=== PATIENT | male | born 1970 | race Caucasian/White ===

== ENCOUNTER 2017-04-05 12:52 | Inpatient (IN) ==
[2017-04-05] MEDS ORDERED: DILTIAZEM 50 MG/10 ML VIAL IV STA (13:24)
[2017-04-05] MEDS ORDERED: ASPIRIN 325 MG TABLET PO STA (13:24)
[2017-04-05 13:48] LABS: Basophils # 0.1 10*3/uL (0.0-0.2); Basophils % 0.7 % (0.0-0.8); Eosinophils # 0.1 10*3/uL (0.0-0.87); Eosinophils % 1.8 % (0.00-10.9); Hematocrit 45.4 VOL% (42.0-52.0); Immature Granulocytes % 0.3 %; Immature Granulocytes Absolute 0.02 #; Lymphocytes # 1.3 10*3/uL (1.4-4.0); Lymphocytes % 19.8 % (21.2-54.2); Mean Corpuscular HGB Conc 35.2 GM/DL (32-36); Mean Corpuscular Hemoglobin 32 PG (27-34); Mean Corpuscular Volume 90.8 FL (87-102); Mean Platelet Volume 10.2 FL (9.6-12.0); Monocytes # 0.5 10*3/uL (0.11-0.8); Monocytes % 7.9 % (1.7-12.7); Neutrophils # 4.6 10*3/uL (1.4-7.4); Neutrophils % 69.5 % (38.7-73.9); Platelet Count 240 T/CUMM (130-400); Red Cell Distribution Width 14.6 % (9.3-17.3); White Blood Count 6.7 T/CUMM (4-12)
[2017-04-05 13:55] LABS: Apearance,Urine CLEAR (Clear); Bilirubin,Urine Negative (Negative); Blood, Urine Negative (Negative); Glucose,Urine (UA) 150 mg/dL (Negative); Ketones,Urine 5 mg/dL (Negative); Nitrite,Urine Negative (Negative); Protein,Urine Negative; Squamous Epithelial Cell,Urine Occasional /HPF (0-10); Urine Color Straw (Yellow); Urine Specific Gravity 1.005 (1.001-1.035); Urine Urobilinogen < 2.0 EU/DL (0.2-1.0); WBC,Urine <1 /HPF (0-6)
[2017-04-05] MEDS: DILTIAZEM INJ 100 MG in SODIUM CHLORIDE 0.9% 100 ML IV SCH ×2 (13:56→22:02)
[2017-04-05 14:07] LABS: PT Patient Result 10.6 SECS
[2017-04-05 14:16] LABS: Free T4 (Free Thyroxine) 1.03 NG/DL (0.76-1.46); Magnesium 1.9 MG/DL (1.8-2.4)
[2017-04-05 14:23] LABS: Albumin 4.1 G/DL (3.4-5.0); Bilirubin,Total 0.7 MG/DL (0.2-1.0); Calcium 9.4 MG/DL (8.5-10.1); Osmolality,Calculated 276.7 MOS/KG (273-304); Potassium 3.8 MMOL/L (3.5-5.1); Thyroid Stimulating Hormone 0.661 uIU/ml (0.358-3.74); Total Protein 7.4 G/DL (6.4-8.3); Troponin I Only 0.034 NG/ML (0.00-0.045)
[2017-04-05] MEDS ORDERED: ENOXAPARIN 100 MG/ML SYRINGE SUBCUT STA (14:30)
[2017-04-05 14:39] LABS: Barbiturates Screen,Urine Negative (Negative); Benzodiazepines Screen,Urine Negative (Negative); Cannabinoid Screen,Urine Negative (Negative); Opiate Screen,Urine Negative (Negative); Phencyclidine Screen,Urine Negative (Negative)
[2017-04-05] MEDS ORDERED: ENOXAPARIN 120 MG/0.8 ML SYRINGE SUBCUT ONE (15:33)
[2017-04-05] MEDS ORDERED: DILTIAZEM 50 MG/10 ML VIAL IV ONE (15:42)
[2017-04-05] MEDS ORDERED: DILTIAZEM 100 MG VIAL.ADD IV ONE (15:42)
[2017-04-05] MEDS ORDERED: ONDANSETRON 4 MG/2 ML VIAL IV PRN (16:11)
[2017-04-05] MEDS ORDERED: SECUKINUMAB 150 MG SUBCUT SCH (16:11)
[2017-04-05] MEDS ORDERED: ZALEPLON 5 MG CAPSULE PO PRN (16:11)
[2017-04-05] MEDS ORDERED: DIGOXIN 0.5 MG/2 ML AMP IV ONE ×2 (16:54→18:30)
[2017-04-05] MEDS ORDERED: DEXTROSE 50% 25 GM/50 ML VIAL IV PRN (18:00)
[2017-04-05] MEDS ORDERED: GLUCAGON 1 MG VIAL IM PRN (18:00)
[2017-04-05] MEDS: ENOXAPARIN 150 MG/ML SYRINGE SUBCUT SCH (21:16)
[2017-04-05] MEDS: OMEGA 3 ACID ETHYL ESTERS 1 GM CAPSULE PO SCH (21:17)
[2017-04-05] MEDS: ATORVASTATIN 20 MG TABLET PO SCH (21:17)
[2017-04-05] MEDS: TRIAMCINOLONE 0.1% OINT 15 GM TUBE TOP SCH (21:17)
[2017-04-05] MEDS: INSULIN LISPRO 100 UNIT/ML SUBCUT SCH (21:19)
[2017-04-05 22:02] LABS: Troponin I Only 0.049 NG/ML (0.00-0.045)
[2017-04-06 03:39] LABS: Basophils # 0.1 10*3/uL (0.0-0.2); Basophils % 0.8 % (0.0-0.8); Eosinophils # 0.2 10*3/uL (0.0-0.87); Eosinophils % 2.5 % (0.00-10.9); Hematocrit 42.3 VOL% (42.0-52.0); Immature Granulocytes % 0.3 %; Immature Granulocytes Absolute 0.02 #; Lymphocytes # 2.1 10*3/uL (1.4-4.0); Mean Corpuscular HGB Conc 35.5 GM/DL (32-36); Mean Corpuscular Hemoglobin 33 PG (27-34); Mean Platelet Volume 10.9 FL (9.6-12.0); Monocytes # 0.4 10*3/uL (0.11-0.8); Monocytes % 6.2 % (1.7-12.7); Neutrophils # 3.4 10*3/uL (1.4-7.4); Neutrophils % 56.2 % (38.7-73.9); Platelet Count 237 T/CUMM (130-400); Red Blood Count 4.55 MC/CUMM (3.8-5.5); Red Cell Distribution Width 14.7 % (9.3-17.3); White Blood Count 6.1 T/CUMM (4-12)
[2017-04-06 04:01] LABS: Calcium 8.3 MG/DL (8.5-10.1); Magnesium 1.8 MG/DL (1.8-2.4); Osmolality,Calculated 281.5 MOS/KG (273-304); Potassium 3.7 MMOL/L (3.5-5.1)
[2017-04-06] MEDS: DILTIAZEM INJ 100 MG in SODIUM CHLORIDE 0.9% 100 ML IV SCH (04:43)
[2017-04-06] MEDS: INSULIN LISPRO 100 UNIT/ML SUBCUT SCH ×4 (08:50→20:28)
[2017-04-06] MEDS: SPIRONOLACTONE 100 MG TABLET PO SCH (08:51)
[2017-04-06] MEDS: ENOXAPARIN 150 MG/ML SYRINGE SUBCUT SCH (08:52)
[2017-04-06] MEDS: FOLIC ACID 1 MG TABLET PO SCH (08:52)
[2017-04-06] MEDS: FUROSEMIDE 40 MG TABLET PO SCH (08:52)
[2017-04-06] MEDS: PANTOPRAZOLE 40 MG TABLET PO SCH (08:52)
[2017-04-06] MEDS ORDERED: ENOXAPARIN 40 MG/0.4 ML SYRINGE SUBCUT SCH (09:00)
[2017-04-06] MEDS: TRIAMCINOLONE 0.1% OINT 15 GM TUBE TOP SCH ×2 (09:14→20:28)
[2017-04-06] MEDS: DILTIAZEM 30 MG TABLET PO SCH ×3 (12:10→20:27)
[2017-04-06] MEDS ORDERED: DILTIAZEM 30 MG TABLET PO SCH (13:00)
[2017-04-06] MEDS: APIXABAN 5 MG TABLET PO SCH (20:27)
[2017-04-06] MEDS: OMEGA 3 ACID ETHYL ESTERS 1 GM CAPSULE PO SCH (20:28)
[2017-04-06] MEDS: ATORVASTATIN 20 MG TABLET PO SCH (20:28)
[2017-04-07 03:56] LABS: Basophils % 0.7 % (0.0-0.8); Eosinophils # 0.1 10*3/uL (0.0-0.87); Eosinophils % 2.1 % (0.00-10.9); Immature Granulocytes % 0.3 %; Immature Granulocytes Absolute 0.02 #; Lymphocytes # 1.5 10*3/uL (1.4-4.0); Lymphocytes % 26.5 % (21.2-54.2); Mean Corpuscular HGB Conc 35.7 GM/DL (32-36); Mean Corpuscular Hemoglobin 33 PG (27-34); Mean Corpuscular Volume 92.7 FL (87-102); Monocytes # 0.4 10*3/uL (0.11-0.8); Monocytes % 6.9 % (1.7-12.7); Neutrophils # 3.7 10*3/uL (1.4-7.4); Neutrophils % 63.5 % (38.7-73.9); Platelet Count 229 T/CUMM (130-400); Red Blood Count 4.53 MC/CUMM (3.8-5.5); Red Cell Distribution Width 14.5 % (9.3-17.3); White Blood Count 5.8 T/CUMM (4-12)
[2017-04-07 04:31] LABS: Calcium 8.2 MG/DL (8.5-10.1); Osmolality,Calculated 284.5 MOS/KG (273-304); Potassium 4.2 MMOL/L (3.5-5.1)
[2017-04-07 05:17] LABS: Risk Ratio 8.35; VLDL CHOLESTEROL 198.8 MG/DL
[2017-04-07] MEDS: APIXABAN 5 MG TABLET PO SCH (09:21)
[2017-04-07] MEDS: INSULIN LISPRO 100 UNIT/ML SUBCUT SCH ×4 (09:21→21:15)
[2017-04-07] MEDS: FUROSEMIDE 40 MG TABLET PO SCH (09:22)
[2017-04-07] MEDS: FOLIC ACID 1 MG TABLET PO SCH (09:22)
[2017-04-07] MEDS: TRIAMCINOLONE 0.1% OINT 15 GM TUBE TOP SCH ×2 (09:23→21:20)
[2017-04-07] MEDS: SPIRONOLACTONE 100 MG TABLET PO SCH (09:33)
[2017-04-07] MEDS: DILTIAZEM 30 MG TABLET PO SCH (09:34)
[2017-04-07] MEDS: BISOPROLOL 5 MG TABLET PO SCH (09:35)
[2017-04-07] MEDS: PANTOPRAZOLE 40 MG TABLET PO SCH (09:36)
[2017-04-07] MEDS: FENOFIBRATE 48 MG TABLET PO SCH (15:01)
[2017-04-07] MEDS: ROSUVASTATIN 20 MG TABLET PO SCH (21:13)
[2017-04-07] MEDS: OMEGA 3 ACID ETHYL ESTERS 1 GM CAPSULE PO SCH (21:14)
[2017-04-07] MEDS: LOSARTAN 25 MG TABLET PO SCH (21:14)
[2017-04-08 05:08] LABS: Basophils # 0.1 10*3/uL (0.0-0.2); Eosinophils # 0.2 10*3/uL (0.0-0.87); Eosinophils % 2.5 % (0.00-10.9); Hematocrit 41.4 VOL% (42.0-52.0); Hemoglobin 14.3 GM/DL (14.0-18.0); Immature Granulocytes % 0.2 %; Immature Granulocytes Absolute 0.01 #; Lymphocytes # 1.6 10*3/uL (1.4-4.0); Lymphocytes % 26.8 % (21.2-54.2); Mean Corpuscular HGB Conc 34.5 GM/DL (32-36); Mean Corpuscular Hemoglobin 32 PG (27-34); Mean Corpuscular Volume 92.8 FL (87-102); Mean Platelet Volume 10.9 FL (9.6-12.0); Monocytes # 0.4 10*3/uL (0.11-0.8); Monocytes % 7.3 % (1.7-12.7); Neutrophils # 3.7 10*3/uL (1.4-7.4); Neutrophils % 62.2 % (38.7-73.9); Platelet Count 210 T/CUMM (130-400); Red Blood Count 4.46 MC/CUMM (3.8-5.5); Red Cell Distribution Width 14.6 % (9.3-17.3)
[2017-04-08 05:44] LABS: Calcium 8.4 MG/DL (8.5-10.1); Magnesium 2.2 MG/DL (1.8-2.4); Osmolality,Calculated 288.3 MOS/KG (273-304); Potassium 4.2 MMOL/L (3.5-5.1)
[2017-04-08] MEDS ORDERED: DIAZEPAM 5 MG TABLET PO ONE (06:45)
[2017-04-08] MEDS ORDERED: diphenhydrAMINE CAP 50 MG CAPSULE PO ONE (06:45)
[2017-04-08] MEDS ORDERED: diphenhydrAMINE CAP 50 MG CAPSULE ONE (06:47)
[2017-04-08] MEDS ORDERED: DIAZEPAM 5 MG TABLET ONE (06:48)
[2017-04-08] MEDS ORDERED: LIDOCAINE 1% 20 ML VIAL ONE (06:49)
[2017-04-08] MEDS ORDERED: HEPARIN/NACL 0.9% 2 UNITS/ML 1,000 ML IV ONE (06:49)
[2017-04-08] MEDS: BISOPROLOL 5 MG TABLET PO SCH ×2 (06:55→09:59)
[2017-04-08] MEDS: PANTOPRAZOLE 40 MG TABLET PO SCH ×2 (06:55→09:58)
[2017-04-08] MEDS: LOSARTAN 25 MG TABLET PO SCH ×3 (06:55→20:18)
[2017-04-08] MEDS ORDERED: MIDAZOLAM 2 MG/2 ML VIAL ONE ×2 (07:24→07:33)
[2017-04-08] MEDS ORDERED: fentaNYL 100 MCG/2 ML VIAL ONE (07:24)
[2017-04-08] MEDS ORDERED: HEPARIN/NACL 0.9% 2 UNITS/ML 500 ML IV ONE (07:43)
[2017-04-08] MEDS: INSULIN LISPRO 100 UNIT/ML SUBCUT SCH ×4 (09:27→20:19)
[2017-04-08] MEDS: FOLIC ACID 1 MG TABLET PO SCH (09:57)
[2017-04-08] MEDS: FUROSEMIDE 40 MG TABLET PO SCH (09:57)
[2017-04-08] MEDS: SPIRONOLACTONE 100 MG TABLET PO SCH (09:57)
[2017-04-08] MEDS: FENOFIBRATE 48 MG TABLET PO SCH (09:57)
[2017-04-08] MEDS: TRIAMCINOLONE 0.1% OINT 15 GM TUBE TOP SCH ×2 (09:58→20:19)
[2017-04-08] MEDS: ROSUVASTATIN 20 MG TABLET PO SCH (20:18)
[2017-04-08] MEDS: OMEGA 3 ACID ETHYL ESTERS 1 GM CAPSULE PO SCH (20:18)
[2017-04-08] MEDS: ACETAMINOPHEN 325 MG TABLET PO PRN (20:19)
[2017-04-09] MEDS: ACETAMINOPHEN 325 MG TABLET PO PRN (05:46)
[2017-04-09 05:54] LABS: Basophils # 0.1 10*3/uL (0.0-0.2); Basophils % 0.8 % (0.0-0.8); Eosinophils # 0.1 10*3/uL (0.0-0.87); Eosinophils % 1.8 % (0.00-10.9); Hematocrit 42.2 VOL% (42.0-52.0); Hemoglobin 14.5 GM/DL (14.0-18.0); Immature Granulocytes % 0.2 %; Immature Granulocytes Absolute 0.01 #; Lymphocytes # 1.6 10*3/uL (1.4-4.0); Lymphocytes % 25.7 % (21.2-54.2); Mean Corpuscular HGB Conc 34.4 GM/DL (32-36); Mean Corpuscular Hemoglobin 32 PG (27-34); Mean Corpuscular Volume 92.3 FL (87-102); Mean Platelet Volume 10.8 FL (9.6-12.0); Monocytes # 0.5 10*3/uL (0.11-0.8); Monocytes % 7.6 % (1.7-12.7); Neutrophils # 3.9 10*3/uL (1.4-7.4); Neutrophils % 63.9 % (38.7-73.9); Platelet Count 191 T/CUMM (130-400); Red Blood Count 4.57 MC/CUMM (3.8-5.5); Red Cell Distribution Width 14.5 % (9.3-17.3); White Blood Count 6.1 T/CUMM (4-12)
[2017-04-09 06:24] LABS: Calcium 8.7 MG/DL (8.5-10.1); Magnesium 1.9 MG/DL (1.8-2.4); Osmolality,Calculated 286.3 MOS/KG (273-304); Potassium 4.1 MMOL/L (3.5-5.1)
[2017-04-09] MEDS: SPIRONOLACTONE 100 MG TABLET PO SCH (10:00)
[2017-04-09] MEDS: LOSARTAN 25 MG TABLET PO SCH (10:01)
[2017-04-09] MEDS: BISOPROLOL 5 MG TABLET PO SCH (10:02)
[2017-04-09] MEDS: FUROSEMIDE 40 MG TABLET PO SCH (10:02)
[2017-04-09] MEDS: FENOFIBRATE 48 MG TABLET PO SCH (10:02)
[2017-04-09] MEDS: PANTOPRAZOLE 40 MG TABLET PO SCH (10:02)
[2017-04-09] MEDS: FOLIC ACID 1 MG TABLET PO SCH (10:02)
[2017-04-09] MEDS: INSULIN LISPRO 100 UNIT/ML SUBCUT SCH ×3 (10:06→17:33)
[2017-04-09] MEDS ORDERED: SPIRONOLACTONE 50 MG TABLET PO SCH (11:10)
[2017-04-09] MEDS ORDERED: FUROSEMIDE 20 MG TABLET PO SCH (11:11)
[2017-04-09] MEDS: TRIAMCINOLONE 0.1% OINT 15 GM TUBE TOP SCH (11:40)
[2017-04-09] MEDS: DIGOXIN 0.5 MG/2 ML AMP IV SCH ×2 (11:41→13:40)
[2017-04-09] MEDS ORDERED: APIXABAN 5 MG TABLET PO SCH (12:00)
[2017-04-09] MEDS ORDERED: DIGOXIN 0.25 MG TABLET PO SCH (13:00)
[2017-04-09 16:40] VITALS: BP 101/74
[2017-04-10] MEDS ORDERED: LOSARTAN 25 MG TABLET PO SCH (09:00)
[2017-04-10] MEDS ORDERED: DIGOXIN 0.25 MG TABLET PO SCH (13:00)
== END 2017-04-09 18:44 | disposition home or self-care (01) | DRG 287 ==
LOC: N.ED 12:52 → N.EDINP 14:44 → N.TELEN 16:00
PROVIDERS: ADMIT Internal Medicine; ATTEND Internal Medicine

== ENCOUNTER 2020-02-27 17:24 | Inpatient (IN) ==
[2020-02-27] MEDS ORDERED: ALBUTEROL/IPRATROPIUM 3 ML NEB RESP TX STA (18:14)
[2020-02-27] MEDS ORDERED: ONDANSETRON 4 MG/2 ML VIAL IV STA (18:14)
[2020-02-27] MEDS ORDERED: FUROSEMIDE 100 MG/10 ML VIAL IV STA (18:14)
[2020-02-27 18:28] LABS: Basophils % 0.6 % (0.0-0.8); Eosinophils # 0.1 10*3/uL (0.0-0.87); Eosinophils % 1.5 % (0.00-10.9); Hematocrit 39.7 VOL% (42.0-52.0); Hemoglobin 13.4 GM/DL (14.0-18.0); Immature Granulocytes % 0.6 %; Immature Granulocytes Absolute 0.04 #; Lymphocytes # 1.4 10*3/uL (1.4-4.0); Mean Corpuscular HGB Conc 33.8 GM/DL (32-36); Mean Corpuscular Volume 88.6 FL (87-102); Mean Platelet Volume 11.6 FL (9.6-12.0); Neutrophils % 74.3 % (38.7-73.9); Platelet Count 166 T/CUMM (130-400); Red Blood Count 4.48 MC/CUMM (3.8-5.5); Red Cell Distribution Width 14.4 % (9.3-17.3); White Blood Count 7.2 T/CUMM (4-12)
[2020-02-27 18:35] LABS: Albumin 3.6 G/DL (3.4-5.0); Bilirubin,Total 1.2 MG/DL (0.2-1.0); Calcium 9.4 MG/DL (8.5-10.1); Osmolality,Calculated 294.7 MOS/KG (273-304); PT Patient Result 10.8 SECS (9.8-11.9); Total Protein 6.6 G/DL (6.4-8.3)
[2020-02-27] MEDS ORDERED: MAGNESIUM SULF RIDER 2 GM in PREMIX 1 EACH IV STA (18:44)
[2020-02-27] MEDS ORDERED: INSULIN REGULAR 100 UNIT/ML SUBCUT STA (18:45)
[2020-02-27] MEDS ORDERED: DEXTROSE 50% 25 GM/50 ML VIAL IV PRN ×2 (20:09)
[2020-02-27] MEDS ORDERED: GLUCAGON 1 MG VIAL IM PRN ×2 (20:09)
[2020-02-27] MEDS ORDERED: ENOXAPARIN 40 MG/0.4 ML SYRINGE SUBCUT SCH (20:30)
[2020-02-27] MEDS: INSULIN LISPRO 100 UNIT/ML SUBCUT SCH (21:20)
[2020-02-27] MEDS: ROSUVASTATIN 20 MG TABLET PO SCH (23:21)
[2020-02-27] MEDS: APIXABAN 5 MG TABLET PO SCH (23:21)
[2020-02-27] MEDS: PANTOPRAZOLE 40 MG TABLET PO SCH (23:21)
[2020-02-28 06:04] LABS: Basophils % 0.5 % (0.0-0.8); Eosinophils # 0.2 10*3/uL (0.0-0.87); Eosinophils % 2.7 % (0.00-10.9); Hematocrit 35.5 VOL% (42.0-52.0); Hemoglobin 11.7 GM/DL (14.0-18.0); Immature Granulocytes % 0.3 %; Immature Granulocytes Absolute 0.02 #; Lymphocytes # 1.6 10*3/uL (1.4-4.0); Lymphocytes % 27.4 % (21.2-54.2); Mean Corpuscular Volume 89.6 FL (87-102); Mean Platelet Volume 10.9 FL (9.6-12.0); Monocytes % 4.1 % (1.7-12.7); Platelet Count 118 T/CUMM (130-400); Red Blood Count 3.96 MC/CUMM (3.8-5.5); Red Cell Distribution Width 14.7 % (9.3-17.3); White Blood Count 5.9 T/CUMM (4-12)
[2020-02-28 06:57] LABS: Albumin 3.1 G/DL (3.4-5.0); Bilirubin,Total 1.4 MG/DL (0.2-1.0); Calcium 8.9 MG/DL (8.5-10.1); Osmolality,Calculated 287.7 MOS/KG (273-304); Risk Ratio 4.37; Thyroid Stimulating Hormone 0.936 uIU/ml (0.358-3.74); Total Protein 6.2 G/DL (6.4-8.3)
[2020-02-28] MEDS ORDERED: POTASSIUM CHLORIDE 20 MEQ TABLET PO ONE (07:08)
[2020-02-28] MEDS ORDERED: MAGNESIUM SULF RIDER 2 GM in PREMIX 1 EACH IV ONE (07:08)
[2020-02-28] MEDS: ASPIRIN EC 81 MG TABLET PO SCH (10:11)
[2020-02-28] MEDS: SOTALOL 80 MG TABLET PO SCH ×2 (10:11→20:44)
[2020-02-28] MEDS: SACUBITRIL/VALSARTAN 49-51 MG TABLET PO SCH ×2 (10:11→20:44)
[2020-02-28] MEDS: SPIRONOLACTONE 25 MG TABLET PO SCH (10:11)
[2020-02-28] MEDS: INSULIN LISPRO 100 UNIT/ML SUBCUT SCH ×4 (10:12→20:52)
[2020-02-28] MEDS: APIXABAN 5 MG TABLET PO SCH ×2 (10:12→20:44)
[2020-02-28] MEDS: FUROSEMIDE 40 MG/4 ML VIAL IV SCH ×2 (10:20→16:12)
[2020-02-28] MEDS ORDERED: ACETAMINOPHEN 325 MG TABLET PO PRN (13:17)
[2020-02-28] MEDS: metOLazone 5 MG TABLET PO SCH (16:40)
[2020-02-28] MEDS: PANTOPRAZOLE 40 MG TABLET PO SCH (20:44)
[2020-02-28] MEDS: ROSUVASTATIN 20 MG TABLET PO SCH (20:44)
[2020-02-29 05:51] LABS: Basophils % 0.3 % (0.0-0.8); Eosinophils # 0.2 10*3/uL (0.0-0.87); Eosinophils % 2.3 % (0.00-10.9); Hemoglobin 12.3 GM/DL (14.0-18.0); Immature Granulocytes % 0.5 %; Immature Granulocytes Absolute 0.03 #; Lymphocytes # 1.5 10*3/uL (1.4-4.0); Lymphocytes % 23.7 % (21.2-54.2); Mean Corpuscular HGB Conc 33.2 GM/DL (32-36); Mean Corpuscular Volume 89.6 FL (87-102); Mean Platelet Volume 10.9 FL (9.6-12.0); Neutrophils % 69.2 % (38.7-73.9); Platelet Count 127 T/CUMM (130-400); Red Blood Count 4.13 MC/CUMM (3.8-5.5); Red Cell Distribution Width 15.1 % (9.3-17.3); White Blood Count 6.5 T/CUMM (4-12)
[2020-02-29 06:04] LABS: Osmolality,Calculated 284.7 MOS/KG (273-304)
[2020-02-29 06:23] LABS: Hypochromasia 1+; Microcytosis 1+; Ovalocytes Slight; Platelet Estimate Normal
[2020-02-29] MEDS ORDERED: BUTALBITAL/ACETAMIN/CAFFEINE 50-325-40 MG TABLET PO PRN (08:28)
[2020-02-29] MEDS: ASPIRIN EC 81 MG TABLET PO SCH (09:24)
[2020-02-29] MEDS: metOLazone 5 MG TABLET PO SCH (09:24)
[2020-02-29] MEDS: SOTALOL 80 MG TABLET PO SCH ×2 (09:24→20:36)
[2020-02-29] MEDS: SACUBITRIL/VALSARTAN 49-51 MG TABLET PO SCH ×2 (09:25→20:35)
[2020-02-29] MEDS: SPIRONOLACTONE 25 MG TABLET PO SCH (09:25)
[2020-02-29] MEDS: APIXABAN 5 MG TABLET PO SCH ×2 (09:25→20:36)
[2020-02-29] MEDS: INSULIN LISPRO 100 UNIT/ML SUBCUT SCH ×4 (09:26→20:37)
[2020-02-29] MEDS: INSULIN GLARGINE 100 UNIT/ML SUBCUT SCH (09:27)
[2020-02-29] MEDS: FUROSEMIDE 40 MG/4 ML VIAL IV SCH ×2 (09:35→16:50)
[2020-02-29] MEDS: ALBUTEROL 1.25 MG/3 ML NEB RESP TX SCH ×2 (13:30→20:00)
[2020-02-29] MEDS: ROSUVASTATIN 20 MG TABLET PO SCH (20:36)
[2020-02-29] MEDS: PANTOPRAZOLE 40 MG TABLET PO SCH (20:36)
[2020-03-01] MEDS: ALBUTEROL 1.25 MG/3 ML NEB RESP TX SCH ×4 (02:40→19:49)
[2020-03-01 06:34] LABS: Basophils % 0.4 % (0.0-0.8); Eosinophils # 0.1 10*3/uL (0.0-0.87); Eosinophils % 1.7 % (0.00-10.9); Hematocrit 34.5 VOL% (42.0-52.0); Immature Granulocytes % 0.2 %; Immature Granulocytes Absolute 0.01 #; Lymphocytes # 1.3 10*3/uL (1.4-4.0); Mean Corpuscular HGB Conc 34.8 GM/DL (32-36); Mean Corpuscular Volume 85.2 FL (87-102); Mean Platelet Volume 11.1 FL (9.6-12.0); Monocytes % 5.1 % (1.7-12.7); Neutrophils % 65.6 % (38.7-73.9); Platelet Count 126 T/CUMM (130-400); Red Blood Count 4.05 MC/CUMM (3.8-5.5); Red Cell Distribution Width 15.2 % (9.3-17.3); White Blood Count 4.7 T/CUMM (4-12)
[2020-03-01 06:47] LABS: Calcium 8.9 MG/DL (8.5-10.1)
[2020-03-01] MEDS: FUROSEMIDE 40 MG/4 ML VIAL IV SCH ×2 (08:30→09:11)
[2020-03-01] MEDS: INSULIN LISPRO 100 UNIT/ML SUBCUT SCH ×4 (09:10→20:59)
[2020-03-01] MEDS: INSULIN GLARGINE 100 UNIT/ML SUBCUT SCH (09:12)
[2020-03-01] MEDS: ASPIRIN EC 81 MG TABLET PO SCH (09:12)
[2020-03-01] MEDS: SOTALOL 80 MG TABLET PO SCH ×2 (09:12→20:57)
[2020-03-01] MEDS: SACUBITRIL/VALSARTAN 49-51 MG TABLET PO SCH ×2 (09:12→20:58)
[2020-03-01] MEDS: metOLazone 5 MG TABLET PO SCH (09:12)
[2020-03-01] MEDS: POTASSIUM CHLORIDE 20 MEQ TABLET PO PRN ×4 (09:12→15:34)
[2020-03-01] MEDS: SPIRONOLACTONE 25 MG TABLET PO SCH (09:12)
[2020-03-01] MEDS: APIXABAN 5 MG TABLET PO SCH ×2 (09:12→20:58)
[2020-03-01] MEDS ORDERED: MAGNESIUM SULF RIDER 4 GM in PREMIX 1 EACH IV PRN (09:37)
[2020-03-01] MEDS ORDERED: MAGNESIUM SULF RIDER 2 GM in PREMIX 1 EACH IV PRN (09:37)
[2020-03-01] MEDS: POLYETHYLENE GLYCOL POWDER 17 GM PACK PO SCH (10:29)
[2020-03-01] MEDS: HYDROCORTISONE 25 MG SUPP RECTAL SCH ×3 (10:29→20:57)
[2020-03-01] MEDS ORDERED: HYDROCORTISONE 25 MG SUPP RECTAL SCH (15:00)
[2020-03-01] MEDS: FUROSEMIDE 80 MG TABLET PO SCH (15:50)
[2020-03-01] MEDS: ROSUVASTATIN 20 MG TABLET PO SCH (20:57)
[2020-03-01] MEDS: PANTOPRAZOLE 40 MG TABLET PO SCH (20:58)
[2020-03-02] MEDS: ALBUTEROL 1.25 MG/3 ML NEB RESP TX SCH ×2 (02:00→07:27)
[2020-03-02 05:36] LABS: Basophils % 0.7 % (0.0-0.8); Eosinophils # 0.1 10*3/uL (0.0-0.87); Eosinophils % 1.6 % (0.00-10.9); Hematocrit 39.8 VOL% (42.0-52.0); Immature Granulocytes % 0.4 %; Immature Granulocytes Absolute 0.02 #; Lymphocytes # 1.6 10*3/uL (1.4-4.0); Lymphocytes % 29.2 % (21.2-54.2); Mean Corpuscular HGB Conc 35.2 GM/DL (32-36); Mean Corpuscular Volume 84.9 FL (87-102); Neutrophils % 62.1 % (38.7-73.9); Platelet Count 162 T/CUMM (130-400); Red Blood Count 4.69 MC/CUMM (3.8-5.5); Red Cell Distribution Width 15.8 % (9.3-17.3); White Blood Count 5.5 T/CUMM (4-12)
[2020-03-02 06:14] LABS: Calcium 9.7 MG/DL (8.5-10.1); Osmolality,Calculated 275.4 MOS/KG (273-304); Osmolality,Calculated 277.2 MOS/KG (273-304)
[2020-03-02] MEDS ORDERED: POTASSIUM CHLORIDE 20 MEQ TABLET PO ONE (07:44)
[2020-03-02 08:05] VITALS: BP 102/60
[2020-03-02] MEDS ORDERED: FUROSEMIDE 80 MG TABLET PO SCH (09:00)
[2020-03-02] MEDS ORDERED: metOLazone 5 MG TABLET PO SCH (09:00)
[2020-03-02] MEDS: SPIRONOLACTONE 25 MG TABLET PO SCH (09:07)
[2020-03-02] MEDS: INSULIN LISPRO 100 UNIT/ML SUBCUT SCH ×2 (09:07→12:06)
[2020-03-02] MEDS: SOTALOL 80 MG TABLET PO SCH (09:07)
[2020-03-02] MEDS: FUROSEMIDE 80 MG TABLET PO SCH (09:07)
[2020-03-02] MEDS: HYDROCORTISONE 25 MG SUPP RECTAL SCH (09:07)
[2020-03-02] MEDS: ASPIRIN EC 81 MG TABLET PO SCH (09:07)
[2020-03-02] MEDS: SACUBITRIL/VALSARTAN 49-51 MG TABLET PO SCH (09:08)
[2020-03-02] MEDS: APIXABAN 5 MG TABLET PO SCH (09:08)
[2020-03-02] MEDS: POLYETHYLENE GLYCOL POWDER 17 GM PACK PO SCH (09:08)
[2020-03-02] MEDS: INSULIN GLARGINE 100 UNIT/ML SUBCUT SCH (09:08)
== END 2020-03-02 12:25 | disposition home or self-care (01) | DRG 292 ==
LOC: N.EDINP 17:24 → N.ED 17:24 → N.EDINP 21:14 → N.TELES 21:24
PROVIDERS: ADMIT Internal Medicine; ATTEND Internal Medicine